=== PATIENT | female | born 1990 | race Caucasian/White ===

== ENCOUNTER 2023-10-31 08:42 | Observation (INO) | payer MEDICAID ==
[~2023-10-31] VITALS: Ht 167.6 cm; Wt 107.5 kg
[2023-10-31 09:30] VITALS: BP 118/64; PULSE 69; RESP 18; TEMP 98
[2023-10-31] MEDS: LACTATED RINGERS 1,000 ML IV SCH ×2 (10:40→12:20)
[2023-10-31] MEDS: ONDANSETRON 8 MG in NACL 0.9% 50 ML IVP PRN (12:31)
== END 2023-10-31 13:08 | disposition home or self-care (01) ==
LOC: MLD 08:42
PROVIDERS: ADMIT Obstetrics & Gynecology; ATTEND Obstetrics & Gynecology
DX: O21.8 Other vomiting complicating pregnancy (principal); O26.891 Other specified pregnancy related conditions, first trimester; R10.9 Unspecified abdominal pain; Z3A.09 9 weeks gestation of pregnancy
CPT/HCPCS: 81000; 96361; 96374; G0378; J2405; J7120